=== PATIENT | male | born 1990 | race Caucasian/White ===

== ENCOUNTER 2023-10-13 00:34 | Emergency (ER) | payer SELFPAY ==
[~2023-10-13] VITALS: Ht 167.6 cm; Wt 158.8 kg
[~2023-10-13 00:34] MED LIST: IOPAMIDOL 370 MG/ML 100 ML INFUS..BTL INJ ONE; Sodium Chloride 0.9% 50ML Bag ONE
[2023-10-13 01:11] LABS: BASOPHILS # (AUTO) 0.1 (0.0-0.1); BASOPHILS % 0.9 % (0.0-1.0); HEMATOCRIT 58.8 % (38.2-49.6); HEMOGLOBIN 18.5 g/dL (14.0-18.0); LYMPHOCYTES # (AUTO) 1.7 (1.0-3.2); LYMPHOCYTES % 10.4 % (18.0-39.1); MEAN CORPUSCULAR HEMOGLOBIN 31.3 pg (28-32); MEAN CORPUSCULAR HGB CONC 31.5 g/dL (31-35); MEAN CORPUSCULAR VOLUME 99.3 fL (81-99); MONOCYTES # (AUTO) 1.8 (0.2-0.8); MONOCYTES % 11.6 % (4.4-11.3); NEUTROPHILS # (AUTO) 11.8 (2.1-6.9); NEUTROPHILS % 74.5 % (38.7-80.0); PLATELET COUNT 318 x10e3/uL (140-360); RED BLOOD COUNT 5.92 x10e6/uL (4.3-5.7); RED CELL DISTRIBUTION WIDTH 16.5 % (11.7-14.4); WHITE BLOOD COUNT 15.88 x10e3/uL (4.8-10.8)
[2023-10-13] MEDS ORDERED: Vancomycin IV 750 MG in SODIUM CHLORIDE 0.9% 100 ML IV SCH (01:15)
[2023-10-13 01:35] LABS: ALBUMIN 3.4 g/dL (3.5-5.0); ALBUMIN/GLOBULIN RATIO 0.8 (0.8-2.0); ANION GAP 23.5 mmol/L (8-16); BILIRUBIN,TOTAL 1.1 mg/dL (0.2-1.2); CALCIUM 9.1 mg/dL (8.4-10.2); CREATININE, SERUM 1.72 mg/dL (0.72-1.25); INFLUENZAE A&B ANTIGEN (RAPID) NEGATIVE (NEGATIVE); POTASSIUM 4.5 mmol/L (3.5-5.1); RESPIRATORY SYNC. VIRUS NEGATIVE (NEGATIVE); TOTAL PROTEIN 7.9 g/dL (6.5-8.1)
[2023-10-13 01:49] LABS: ABG PH 7.19 (7.35-7.45)
[2023-10-13 01:50] LABS: ABG HCO3 34 mmol/L (22-26); ABG PCO2 89 mmHg (35-45); ABG PO2 54 mmHg (80-105); ABG TCO2 36
[2023-10-13 02:24] LABS: TROPONIN I 0.046 ng/mL (0-0.300)
[2023-10-13] MEDS: SODIUM CHLORIDE 0.9% IV ONE (02:31)
[2023-10-13] MEDS: VANCOMYCIN IV ONE (02:31)
[2023-10-13] MEDS: LACTATED RINGER'S 500 ML IV ONE ×4 (02:42→04:12)
[2023-10-13 03:32] LABS: ABG HCO3 36 mmol/L (22-26); ABG PH 7.19 (7.35-7.45); ABG PO2 84 mmHg (80-105); ABG TCO2 39
[2023-10-13 03:33] LABS: ABG PCO2 94 mmHg (35-45)
[2023-10-13] MEDS: ACETAMINOPHEN 1000 MG/100 ML IV STA (03:55)
[2023-10-13 05:05] LABS: ABG HCO3 35 mmol/L (22-26); ABG PCO2 91 mmHg (35-45); ABG PO2 97 mmHg (80-105); ABG TCO2 38
[2023-10-13 06:06] VITALS: BP 126/87; O2SAT 95
[2023-10-13] MEDS ORDERED: SODIUM CHLORIDE 0.9% INJ 100 ML BAG ONE (08:27)
[2023-10-13] MEDS ORDERED: LACTATED RINGER'S 1,000 ML BAG ONE (08:27)
[2023-10-13] MEDS ORDERED: VANCOMYCIN 750 MG ONE (08:27)
[2023-10-13] MEDS ORDERED: CEFEPIME HCL 1 GM VIAL ONE (08:27)
[2023-10-13] MEDS ORDERED: ACETAMINOPHEN 1000 MG/100 ML IV ONE (08:27)
[2023-10-13] MEDS ORDERED: SODIUM CHLORIDE 0.9% INJ 250 ML BAG ONE (08:27)
[2023-10-13] MEDS ORDERED: Sodium Chloride 0.9% 50ML Bag ONE (08:27)
[2023-10-13] MEDS ORDERED: Vancomycin IV 1 GM VIAL ONE (08:27)
[2023-10-13] MEDS ORDERED: IOPAMIDOL 370 MG/ML 100 ML INFUS..BTL INJ ONE (14:00)
== END 2023-10-13 06:09 | disposition other institution (70) ==
LOC: ER 00:54
DX: R50.9 Fever, unspecified (principal); J96.01 Acute respiratory failure with hypoxia; J18.9 Pneumonia, unspecified organism; Z11.52 Encounter for screening for COVID-19
CPT/HCPCS: 36415; 36569; 36600; 71045 ×2; 71260; 74177; 80053; 82805; 83605; 83880; 84484; 85025; 87040; 87400; 87420; 94660 ×2; 94799; 99284; J0131; J0692; J3370; J7040; J7050 ×2; J7120; J7121; Q9967 ×2; U0002